=== PATIENT | male | born 1960 | race Caucasian/White ===

== ENCOUNTER 2018-10-29 21:18 | Emergency (ER) | payer OTHER ==
[~2018-10-29] VITALS: Ht 177.8 cm; Wt 90.7 kg
[2018-10-29 21:54] VITALS: BP 175/93
[2018-10-29] MEDS ORDERED: UNABLE MC (22:10)
[2018-10-29 22:26] LABS: BASO % 1 % (0-3); EOS # 0.1 x10^3/uL (0.0-0.7); EOS % 2 % (0-3); HEMATOCRIT 44.7 % (39.0-53.0); HEMOGLOBIN 15.6 g/dL (13.0-17.5); LYMPH # 1.9 x10^3/uL (1.0-4.8); LYMPH % 45 % (24-48); MEAN CORPUSCULAR HEMOGLOBIN 32 pg (25-35); MEAN CORPUSCULAR HGB CONC 35 g/dL (31-37); MEAN CORPUSCULAR VOLUME 93 fL (79-100); MONO # 0.5 x10^3/uL (0.0-1.1); MONO % 12 % (0-9); NEUT # 1.7 x10^3uL (1.8-7.7); NEUT % 39 % (31-73); PLATELET COUNT 233 x10^3/uL (140-400); RED BLOOD COUNT 4.83 x10^6/uL (4.30-5.70); RED CELL DISTRIBUTION WIDTH 13.3 % (11.5-14.5); WHITE BLOOD COUNT 4.2 x10^3/uL (4.0-11.0)
[2018-10-29 22:32] LABS: CREATININE 1.1 mg/dL (0.7-1.3); GFR 68.3; POTASSIUM 4.7 mmol/L (3.5-5.1)
[2018-10-29 22:32] LABS: BARBITURATES NEG (NEG); BENZODIAZEPINES NEG (NEG); CANNABINOIDS NEG (NEG); COCAINE NEG (NEG); METHADONE NEG (NEG); OPIATES NEG (NEG); PHENCYCLIDINE NEG (NEG)
[2018-10-29 22:34] LABS: AMPHETAMINE/METHAMPHETAMINE NEG (NEG)
--- NOTE | 2018-10-29 23:46 | PHYS DOC ---
Past Medical History Past Medical History: Depression Additional Past Medical Histor: high cholesterol Past Surgical History: Appendectomy, Tonsillectomy, Other Additional Past Surgical Histo: hernia, bilat knees Alcohol Use: Heavy Additional Information: reports drinking "2-3 glasses of wine every other day" Drug Use: None Adult General Chief Complaint Chief Complaint: SUICDAL IDEATION [facility] HPI Patient is a 58 year old male who presents with depressive symptoms. The patient states he does not have a diagnosis of depression previously. He has never tried to harm himself. He does endorse feeling depressed because his 6 years earlier and the holiday time is a difficult time for him. He also endorses increasing stress over arguments he has with his children. Tonight, he made some comment to his children that he would rather be with his implying that he would rather be than alive. Because of this, the patient was brought to the emergency department. The patient was willing to come to the ER and does request help for these feelings. During my interview, the patient does not endorse acute suicidal thoughts. He has no plan of what he would do to harm himself. He states he has thought of suicide in the past but has never attempted. He has never been admitted for psychiatric reasons. Patient has some protective factors stating that he would never want his children to suffer the loss of another parent. Patient does drink alcohol casually. He denies illicit drug use. 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 Review of Systems Review of Systems Constitutional: Denies fever or chills Eyes: Denies change in visual acuity HENT: Denies nasal congestion Respiratory: Denies cough or shortness of breath Cardiovascular: No additional information not addressed in HPI GI: Denies abdominal pain, nausea : Denies dysuria Musculoskeletal: Denies back pain Integument: Denies rash Neurologic: Denies headache or focal neuro complaints All other systems were reviewed and found to be within normal limits, except as documented in this note. Allergies Allergies Allergies Coded Allergies Type Severity Reaction Last Updated Verified niacin Allergy Intermediate hot flashes 10/29/18 Yes Physical Exam Physical Exam Constitutional: Well developed, well nourished, no acute distress HENT: Normocephalic, atraumatic, bilateral external ears normal Eyes: PERRLA Neck: Normal range of motion, no tenderness Cardiovascular:Heart rate regular rhythm, no murmur Lungs & Thorax: Bilateral breath sounds clear to auscultation Abdomen: Bowel sounds normal, soft, no tenderness Skin: Warm, dry Back: No tenderness Extremities: No tenderness, no cyanosis Neurologic: Alert and oriented X 3 Psychologic: Patient is calm and cooperative. He is speaking with normal eye contact and normal tone and temp of speech. He is not suicidal. He has no hallucinations. He is not homicidal. His mood is sad and his affect is congruent. Current Patient Data Vital Signs Vital Signs Date Time Temp Pulse Resp B/P (MAP) Pulse Ox O2 Delivery O2 Flow Rate FiO2 10/29/18 21:54 97.6 107 20 175/93 (120) 98 Room Air 97.6 Lab Values Laboratory Tests Test 10/29/18 22:05 10/29/18 22:10 Urine Opiates Screen Neg (NEG) Urine Methadone Screen Neg (NEG) Urine Barbiturates Neg (NEG) Urine Phencyclidine Screen Neg (NEG) Urine Amphetamine/Methamphetamine Neg (NEG) Urine Benzodiazepines Screen Neg (NEG) Urine Cocaine Screen Neg (NEG) Urine Cannabinoids Screen Neg (NEG) Urine Ethyl Alcohol Pos (NEG) White Blood Count 4.2 x10^3/uL (4.0-11.0) Red Blood Count 4.83 x10^6/uL (4.30-5.70) Hemoglobin 15.6 g/dL (13.0-17.5) Hematocrit 44.7 % (39.0-53.0) Mean Corpuscular Volume 93 fL (79-100) Mean Corpuscular Hemoglobin 32 pg (25-35) Mean Corpuscular Hemoglobin Concent 35 g/dL (31-37) Red Cell Distribution Width 13.3 % (11.5-14.5) Platelet Count 233 x10^3/uL (140-400) Neutrophils (%) (Auto) 39 % (31-73) Lymphocytes (%) (Auto) 45 % (24-48) Monocytes (%) (Auto) 12 % (0-9) H Eosinophils (%) (Auto) 2 % (0-3) Basophils (%) (Auto) 1 % (0-3) Neutrophils # (Auto) 1.7 x10^3uL (1.8-7.7) L Lymphocytes # (Auto) 1.9 x10^3/uL (1.0-4.8) Monocytes # (Auto) 0.5 x10^3/uL (0.0-1.1) Eosinophils # (Auto) 0.1 x10^3/uL (0.0-0.7) Basophils # (Auto) 0.0 x10^3/uL (0.0-0.2) Sodium Level 144 mmol/L (136-145) Potassium Level 4.7 mmol/L (3.5-5.1) Chloride Level 106 mmol/L (98-107) Carbon Dioxide Level 23 mmol/L (21-32) Anion Gap 15 (6-14) H Blood Urea Nitrogen 14 mg/dL (8-26) Creatinine 1.1 mg/dL (0.7-1.3) Estimated GFR (Cockcroft-Gault) 68.3 Glucose Level 101 mg/dL (70-99) H Calcium Level 9.0 mg/dL (8.5-10.1) Thyroid Stimulating Hormone (TSH) 2.383 uIU/mL (0.358-3.74) Ethyl Alcohol Level 78 mg/dL (0-10) H Laboratory Tests 10/29/18 22:10 Laboratory Tests 10/29/18 22:10 EKG EKG [] Radiology/Procedures Radiology/Procedures [] Course & Med Decision Making Course & Med Decision Making Pertinent Labs and Imaging studies reviewed. (See chart for details) Patient was evaluated in the emergency department after making some statements which was alarming to his family for fear that he was feeling suicidal. He adamantly denies that he would kill himself and that he has a plan. Psychiatric assessment team did evaluate the patient and deemed him safe for discharge this evening. He had basic labs which were unremarkable other than his alcohol level of 78. Plan is for discharge home. Patient was given outpatient resources and he was agreeable to this plan of care. He was advised to come back to the emergency department for any new or worsening symptoms. Patient was accompanied by his daughter who will be staying with him this evening. patient will walk into the crisis center tomorrow for additional evaluation or return to the ER as needed. Dragon Disclaimer Dragon Disclaimer This electronic medical record was generated, in whole or in part, using a voice recognition dictation system. Departure Departure Disposition: HOME, SELF-CARE Condition: GOOD Referrals: AARON ALLEN (PCP) JC NAVAS DO Oct 29, 2018 23:46
== END 2018-10-30 00:20 | disposition home or self-care (01) ==
LOC: ER 21:18
DX: F32.9 Major depressive disorder, single episode, unspecified (principal)
CPT/HCPCS: 36415; 80048; 80307; 84443; 85025; 99284; G0480